=== PATIENT | female | born 1965 | race Hispanic/Latino ===

== ENCOUNTER 2016-09-26 09:52 | Outpatient (CLI) | payer MEDICAID ==
--- NOTE | 2016-09-27 09:22 | Mammography Report ---
BILATERAL DIGITAL SCREENING MAMMOGRAM with CAD : 09/26/16 09:52:00 CLINICAL: Routine screening. COMPARISON:08/11/15 FINDINGS: The breasts are heterogeneously dense, which may obscure small masses.Extensive bilateral benign calcifications are stable. No mass, architectural distortion or suspicious calcifications. IMPRESSION: No mammographic evidence of malignancy. BI-RADS CATEGORY: 2 -- Benign RECOMMENDATION: Routine mammographic screening in one year. COMMENT: Patient follow-up letters are generated by our [employer] application.
== END 2016-09-26 09:53 | disposition home or self-care (01) ==
LOC: SPVWC 09:52
PROVIDERS: ATTEND Internal Medicine
DX: Z12.31 Encounter for screening mammogram for malignant neoplasm of breast (principal)
CPT/HCPCS: 77067; G0202

== ENCOUNTER 2017-07-16 11:22 | Outpatient (CLI) | payer MEDICAID ==
--- NOTE | 2017-07-16 18:24 | Ultrasound Report ---
FINAL REPORT EXAM: US PELVIC COMPLETE HISTORY: BLEEDING TECHNIQUE: Ultrasound pelvis transabdominal PRIORS: None. FINDINGS: The uterus measures 10.0 x 0.7 x 8.8 centimeters There are 3 intramural fibroids present at the fundus there is a 2.0 x 1.7 x 1.8 centimeter fibroid. Anteriorly there is a 1.9 x 1.7 x 1.9 centimeter fibroid. There is a posterior 2.6 x 1.9 x 2.7 fibroid Endometrial thickness is 0.48 centimeters The right ovary is markedly enlarged with a complex mass. The ovaries 13.3 bilobed 0.4 x 12.3 centimeters There is a 10.9 centimeter complex mass within the right ovary. This has partially solid, nodular and cystic components findings are highly suspicious for neoplasm of ovarian origin. No evidence for hyperemia. Left ovary is 2.3 x 1.9 x 1.7 centimeters. No ovarian mass or abnormal cyst identified the left No free fluid identified within the cul-de-sac IMPRESSION: Right ovarian mass suspicious for neoplasm of ovarian origin Multiple uterine fibroids CTR 2 protocol initiated at the time this dictation
== END 2017-07-16 11:23 | disposition home or self-care (01) ==
LOC: US 11:22
PROVIDERS: ATTEND Obstetrics & Gynecology
DX: D25.1 Intramural leiomyoma of uterus (principal)
CPT/HCPCS: 76856

== ENCOUNTER → 2021-02-05 | Outpatient (CLI) | payer MEDICAID | END | disposition home or self-care (01) | LOC: SLR 11:00 | PROVIDERS: ATTEND Internal Medicine Critical Care Medicine | DX: G47.33 Obstructive sleep apnea (adult) (pediatric) (principal) | CPT/HCPCS: 95810 ==